=== PATIENT | male | born 1955 | race Caucasian/White ===

== ENCOUNTER 2019-02-24 23:08 | Emergency (ER) | payer SELFPAY ==
[~2019-02-24] VITALS: Ht 172.7 cm; Wt 70.3 kg
--- NOTE | 2019-02-24 23:21 | NUR ---
CATARINA FROM STREET. TO ER BED 11. INTOXICATED, ADMITS TO ALCOHOL USE . NO RESP DISTRESS. C/O BILAT LEG PAIN. PER PT, PAIN HAS BEEN GOING ON FOR AWHILE. PAIN IS 10/10 SPECIFICALLY WHEN MOVING. DENIES TRAUMA. ROM INTACT. AWAITING MD FOR EVAL
[2019-02-24] MEDS ORDERED: IBUPROFEN 600 MG TABLET PO ONE (23:30)
[2019-02-25] MEDS ORDERED: IBUPROFEN 600 MG TABLET PO ONE
--- NOTE | 2019-02-25 01:14 | NUR ---
Patient discharged to home in stable condition. Written and verbal after care instructions given. Patient verbalizes understanding of instruction.
[2019-02-25 01:15] VITALS: BP 94/140
== END 2019-02-25 01:18 | disposition home or self-care (01) ==
LOC: ER 23:12
DX: G89.29 Other chronic pain (principal); R56.9 Unspecified convulsions

== ENCOUNTER 2019-10-14 06:17 | Inpatient (IN) | payer MEDICAID ==
[2019-10-14] VITALS (7 sets, daily range): BP systolic 91–115; BP diastolic 50–64
[~2019-10-14] VITALS: Ht 172.7 cm; Wt 74.8 kg
--- NOTE | 2019-10-14 06:34 | NUR ---
PT AAOX4. BIBRA C/O "I AM BLEEDING FROM MY ASS" WHEN ASKED WHAT IS BOTHERING YOU. PT PALCED ON MONITOR AND PULSE OX. MD AT BEDSIDE FOR EVAL. NO ACUTE DISTRESS NOTED. IV INIAITED LAC 20G. WILL CONTINUE TO MONITOR.
[2019-10-14] MEDS ORDERED: METOCLOPRAMIDE HCL 10 MG/2 ML VIAL ONE (06:38)
[2019-10-14] MEDS ORDERED: PANTOPRAZOLE 40 MG VIAL ONE (06:38)
--- NOTE | 2019-10-14 06:59 | NUR ---
RECORD PRESS OPERATOR AT BEDSIDE FOR LAB
[2019-10-14] MEDS ORDERED: IV NS 0.9% 500 ML BAG IV ONE (07:00)
[2019-10-14] MEDS ORDERED: METOCLOPRAMIDE HCL 10 MG/2 ML VIAL IV ONE (07:00)
[2019-10-14] MEDS ORDERED: PANTOPRAZOLE 40 MG VIAL IV ONE (07:00)
--- NOTE | 2019-10-14 07:17 | NUR ---
RADIOLOGY AT BEDSIDE FOR EVAL.
[2019-10-14 07:24] LABS: BASOPHILS # (AUTO) 0.1 /CMM (0.0-0.2); BASOPHILS % (AUTO) 0.8 % (0.0-2.0); EOSINOPHILS % (AUTO) 1.5 % (0.0-6.0); LYMPHOCYTES # (AUTO) 0.8 /CMM (0.8-4.8); LYMPHOCYTES % (AUTO) 8.5 % (20.0-44.0); MEAN CORPUSCULAR HGB CONC 33 g/dl (31.0-36.0); MEAN CORPUSCULAR VOLUME 98 fL (80-96); MONOCYTES # (AUTO) 0.8 /CMM (0.1-1.30); MONOCYTES % (AUTO) 8.6 % (2.0-12.0); NEUTROPHILS # (AUTO) 7.5 /CMM (1.8-8.9); NEUTROPHILS % (AUTO) 80.6 % (43.0-81.0); PLATELET COUNT (AUTO) 67 /CMM (150-450); RED BLOOD CELL COUNT(AUTO) 2.09 MIL/uL (4.5-6.0); WHITE BLOOD COUNT (AUTO) 9.3 K/uL (4.3-11.0)
[2019-10-14 07:27] LABS: HEMATOCRIT 20 % (39-51); HEMOGLOBIN 6.7 g/dL (13.5-17.5)
[2019-10-14 07:28] LABS: CALCIUM, SERUM 8.4 mg/dL (8.5-10.1); CREATININE 1.2 mg/dL (0.6-1.3); POTASSIUM 4.6 mmol/L (3.5-5.1)
[2019-10-14 07:33] LABS: ALBUMIN 2.8 g/dL (3.4-5.0); BILIRUBIN,DIRECT 5.1 mg/dL (0.0-0.2)
[2019-10-14 07:38] LABS: BILIRUBIN,TOTAL 8.7 mg/dL (0.2-1.0)
[2019-10-14 08:09] LABS: BAND % (MANUAL) 4 % (0.0-5.0); EOSINOPHILS % (MANUAL) 2 % (0-4); LYMPHOCYTES % (MANUAL) 11 % (16-48); MONOCYTES % (MANUAL) 6 % (0-11.0); NEUTROPHILS % (MANUAL) 77 (42-76)
--- NOTE | 2019-10-14 09:00 | NUR ---
NURSING SUP GAVE 309-2.
--- NOTE | 2019-10-14 09:25 | NUR ---
report given to Brad ARCEO for angelica.
[2019-10-14] MEDS ORDERED: ZOLPIDEM TARTRATE 5 MG TABLET PO PRN (09:30)
[2019-10-14] MEDS: Thiamine 100 MG in IV D5W 50 ML IV SCH (09:30)
[2019-10-14] MEDS ORDERED: MAG HYDROX/AL HYDROX/SIMETH 30 ML UDC PO PRN (09:30)
[2019-10-14] MEDS ORDERED: ONDANSETRON HCL/PF 4 MG/2 ML VIAL IVP PRN (09:30)
[2019-10-14] MEDS ORDERED: Z GUARD REMEDY 2 OZ OINT TP PRN (09:30)
[2019-10-14] MEDS ORDERED: ACETAMINOPHEN 325 MG TABLET PO PRN (09:30)
[2019-10-14] MEDS ORDERED: MVI-12 10ML IV ONE (09:30)
--- NOTE | 2019-10-14 09:49 | NUR ---
wheeled patient via gurney accompanied by RN and emt in no distress. Da Mcclure at bedside to assume care.
--- NOTE | 2019-10-14 10:00 | NUR ---
RN ADMITTING NOTES ADMITTED A 64 YEARS OLD, MALE TO UNIT VIA GURNEY ACCOMPANIED BY E.R NURSE. A/O X4. ABLE TO MAKE NEEDS KNOWN. PATIENT ORIENTED TO ROOM, UNIT AND STAFF. ON ROOM AIR, BREATHING EVEN AND UNLABORED. REFUSED PHYSICAL ASSESSMENT AND PICTURES. PER PATIENT HE DOES NOT WANT TO BE BOTHER RIGHT NOW. LUNGS CLEAR ON AUSCULTATION. PATIENT IV ACCESS ON LAC #20, PATENT AND INTACT. IVF TO BE STARTED. SAFETY MEASURES INITIATED, BED PLACED IN LOWEST LOCKED POSITION WITH SIDE RAILS UP X2. CALL LIGHT WITHIN EASY REACH. WILL CONTINUE TO MONITOR.
--- NOTE | 2019-10-14 10:30 | NUR ---
RN NOTES MED NOT AVAILABLE YET, CALLED PHARMACY REGARDING FOLIC ACID AND THIAMINE, THEY SAID THEY WILL SEND IT UP WHEN READY. WILL F/U.
--- NOTE | 2019-10-14 10:45 | NUR ---
RN NOTES PATIENT REFUSED BLOOD DRAW FOR TYPE AND SCREENING, EXPLAINED THE RISKS AND BENEFITS FOR 3 X. PATIENT STILL REFUSED, WILL TRY TO CONVINCE AGAIN LATER. WILL CONTINUE TO MONITOR.
[2019-10-14] MEDS ORDERED: MVI ADULT 10ML VIAL = 1AMP 10 ML in IV NS 0.9% 1,000 ML IV PRN (11:00)
[2019-10-14] MEDS: IV NS 0.9% 1,000 ML IV SCH ×2 (11:00→19:30)
[2019-10-14] MEDS: Folic acid 1 MG in IV D5W 50 ML IV SCH (11:57)
--- NOTE | 2019-10-14 13:10 | NUR ---
RN NOTES STARTED BLOOD TRANSFUSION WITH V/S FOLLOWS: TEMP-98.2, PULSE- 90, RR- 20, BP- 115/51. WILL CONTINUE TO MONITOR.
--- NOTE | 2019-10-14 16:31 | NUR ---
RN NOTES S/P BLOOD TRANSFUSION, NO REACTIONS NOTED. WILL CONTINUE TO MONITOR.
[2019-10-14] MEDS: HYDROCODONE/APAP 5/325MG 1 EACH TABLET PO PRN (16:48)
--- NOTE | 2019-10-14 16:56 | NUR ---
RN NOTES PATIENT REFUSED BLOOD DRAW, REFUSED IV FLUIDS, REFUSED PLASMA. PATIENT IS NON-COMPLIANT. ONLY WANTS PAIN MEDICATION, PATIENT WANTS TO EAT BUT NPO, ADMITTED DUE TO GI BLEED. MADE AWARE, WILL CONTINUE TO MONITOR. Addendum: 10/14/19 at 1713 by MARIA EUGENIA HALL RN EXPLAINED THE RISKS AND BENEFITS 3 X BUT PATIENT STILL REFUSED. CHARGE NURSE MADE AWARE.
--- NOTE | 2019-10-14 17:49 | NUR ---
RN NOTES PATIENT REMOVED HIS TELE MONITOR, PULLED OUT HIS IV, STARTED SHOUTING AND BECOMES AGGRESIVE. CALLED SECURITY. REQUESTING TO BE TRANSFERRED TO ANOTHER HOSPITAL. CHARGE NURSE MADE AWARE.
--- NOTE | 2019-10-14 18:40 | NUR ---
RN NOTES PATIENT IN BED SITTING ON THE BED, ALERT AND ORIENTED X 3. NON-COMPLIANT, REFUSED ALL MEDICATIONS, MD AND CHARGE NURSE MADE AWARE. SAFETY MEASURES IN PLACE, WILL ENDORSE TO MOISTURE TESTER NURSE FOR WANDA.
--- NOTE | 2019-10-14 19:00 | NUR ---
RN OPENING NOTES Received patient awake on RA, no SOB/respiratory distress noted. No IV line access, patient pulled out his line during the AM shift. Patient is noted aggressive and with attempts to hit staff. S/P 1 unit PRBC. Patient refused to be on tele monitor. Patient wanted to be out of the hospital but no where to go to, patient is homeless. Refused all care. MD aware of the patient's status. Kept on bed, on fall and aspiration precautions. Will continue to monitor accordingly.
--- NOTE | 2019-10-14 19:46 | NUR ---
RN NOTES Patient summoned nurse to room. Patient is frustrated asking help from nurse to help him get out of the hospital. Explained to patient the hospital policy for AMA. Patient became more frustrated. Called security, explained the situation. Patient has no own wheelchair. Security will talk to patient.
--- NOTE | 2019-10-14 21:35 | NUR ---
RN NOTES Pt was able to convinced to stay in the hospital, snacks provided per patient demand. Kept on bed comfortable. Agreed to be check on vital signs, no unusualities at this time. Still refused to be on tele monitor and refused IV access. Per patient he is leaving tomorrow. Kept on bed comfortable. Noted asleep at this time. Will continue to monitor accordingly.
[2019-10-14 23:41] LABS: HEMOGLOBIN 6.2 g/dL (13.5-17.5)
--- NOTE | 2019-10-15 | NUR ---
RN NOTES Received call from [facility], critical lab result Hgb 6.2 and Hct 18. Notified information security architect JORDAN CASEY. Patient noted to refuse all care provided. Patient comfortably asleep at this time. Will continue to monitor accordingly.
--- NOTE | 2019-10-15 04:37 | NUR ---
RN NOTES Patient noted with large brown BM at this time. Urine noted tea colored. Reinforced to patient the importance of complying into therapeutic regimen ordered. Patient is angry of the regimen recommended.
[2019-10-15] MEDS: IV NS 0.9% 1,000 ML IV SCH (04:47)
--- NOTE | 2019-10-15 04:47 | NUR ---
RN NOTES OFFERED TO PATIENT THE IV ORDERED FOR HYDRATION. PATIENT INSISTED TO REFUSED DESPITE THE EDUCATION PROVIDED. PER PATIENT HE WILL LEAVE THE HOSPITAL TODAY. MD AWARE OF PATIENT'S BEHAVIOR.
[2019-10-15] MEDS: HYDROCODONE/APAP 5/325MG 1 EACH TABLET PO PRN (06:17)
--- NOTE | 2019-10-15 06:45 | NUR ---
RN CLOSING NOTES Patient asleep, easily awaken. On RA, no SOB/respiratory distress noted. All nursing needs attended. Patient refused AM labs. Kept on bed clean, dry and comfortable. On fall and aspiration precautions. No s/sx of bleeding noted at this time. Kept on bed clean, dry and comfortable. Call light within easy reach. Endorsed.
--- NOTE | 2019-10-15 07:15 | NUR ---
ms rn received pt, awake,alert,oriented x4,a very noncompliant person, verbally abusive,noted to have a left ac iv heplock at left arm, bleeding, will monitor patient.
[2019-10-15 08:00] VITALS: BP 94/54
--- NOTE | 2019-10-15 08:00 | NUR ---
ms rn patient is shouting verbally abusive refusing all care, want to leave.
[2019-10-15] MEDS ORDERED: OCTREOTIDE 50 MCG in IV NS 0.9% 50 ML IV ONE (09:30)
[2019-10-15] MEDS ORDERED: PANTOPRAZOLE 40 MG VIAL IV SCH (09:30)
[2019-10-15] MEDS: Folic acid 1 MG in IV D5W 50 ML IV SCH (09:30)
[2019-10-15] MEDS: Thiamine 100 MG in IV D5W 50 ML IV SCH (09:30)
[2019-10-15] MEDS ORDERED: OCTREOTIDE 500 MCG in IV NS 0.9% 99 ML IV PRN (09:30)
--- NOTE | 2019-10-15 10:00 | NUR ---
ms rn got a diet order from [facility], gave food to patient.
--- NOTE | 2019-10-15 11:36 | NUR ---
Social service consult requested by MD for homelessness. Per MD notes and chart review, pt is a 64 y/o male with PMH of chronic alcohol abuse, liver cirrhosis, and hepatitis C presents to the ED with c/o of bleeding from his rectum. Pt. states that this has happened to him before. ACCOUNTING CONSULTANT consulted with pt's MARIELOS Johns. Per RN Nat, pt is demanding, non-compliant and continuously keeps asking to leave the hospital. Per Nat, pt is non-ambulatory and wheelchair bound. ACCOUNTING CONSULTANT met with the pt bedside. Pt is alert and oriented x 3. ACCOUNTING CONSULTANT introduced self, explained the role of the SW and purpose of the visit. Pt yells when he speaks and keeps repeating himself stating he wants to leave the hospital and go to [facility]. Pt does not have a wheelchair with him. Pt has poor insight. Pt reports to be homeless for the past 11 years. Pt denies receiving any SSI or government assistance at this time. Pt declined all resources and began yelling, stating, " I want to leave now." ACCOUNTING CONSULTANT consulted with BENTLEY Church who is aware of pt wanting to leave [place]. Pt is non-compliant with all care at this time. BENTLEY Church informed ACCOUNTING CONSULTANT she will notify case checker Summer regarding pt wanting to leave and needing a wheelchair. Hat Blocking Machine Operator is available, as needed.
[2019-10-15] MEDS ORDERED: HALOPERIDOL LACTATE INJ 5 MG/ML VIAL IM ONE (14:00)
--- NOTE | 2019-10-15 15:08 | NUR ---
WARD AIDE was informed by BENTLEY Church, pt is adamant on wanting to leave AMA. WARD AIDE went to meet with the pt. Pt was on the lying on the floor in front of the elevator requesting to leave the hospital. Pt did not have a wheelchair. Security was near the pt. Pt was yelling and screaming at staff requesting to leave. Pt yelling he wants to go to his doctors at [facility]. WARD AIDE explained to the pt we are trying to get him some clothes, shoes and a wheelchair and redirected pt to get up from the floor. Pt was provided with clothing, shoes and a wheelchair. Pt appeared calm and was escorted by staff to the elevator. Pt left AMA declined to sign homeless waiver.
--- NOTE | 2019-10-15 15:10 | NUR ---
ms rn patient refused haldol ordered by danitza quesada, patient refused pictures and went ama.
== END 2019-10-15 14:00 | disposition left against medical advice (07) ==
LOC: ER 06:18 → TELE 09:03 → MED 10-15 12:09
PROVIDERS: ADMIT Family Medicine; ATTEND Nurse Practitioner Acute Care
PROC: 30233N1 Transfusion of Nonautologous Red Blood Cells into Peripheral Vein, Percutaneous Approach (ICD-10-PCS; principal; 2019-10-14)
DX: K76.6 Portal hypertension (principal); G93.41 Metabolic encephalopathy; K85.90 Acute pancreatitis without necrosis or infection, unspecified; D68.9 Coagulation defect, unspecified; E43 Unspecified severe protein-calorie malnutrition; K92.2 Gastrointestinal hemorrhage, unspecified; D69.59 Other secondary thrombocytopenia; K70.30 Alcoholic cirrhosis of liver without ascites; G40.909 Epilepsy, unspecified, not intractable, without status epilepticus; Z59.0 Homelessness; B19.20 Unspecified viral hepatitis C without hepatic coma; K31.89 Other diseases of stomach and duodenum; D62 Acute posthemorrhagic anemia; F17.210 Nicotine dependence, cigarettes, uncomplicated; I10 Essential (primary) hypertension; E87.2 Acidosis; E88.09 Other disorders of plasma-protein metabolism, not elsewhere classified; Z71.6 Tobacco abuse counseling; F10.239 Alcohol dependence with withdrawal, unspecified; Y90.9 Presence of alcohol in blood, level not specified; Z91.19 Patient's noncompliance with other medical treatment and regimen; E86.1 Hypovolemia; F19.10 Other psychoactive substance abuse, uncomplicated; K86.1 Other chronic pancreatitis; Z68.25 Body mass index [BMI] 25.0-25.9, adult
CPT/HCPCS: 36415; 71045-TC; 80048-TC; 80076-TC; 83690-TC; 84484-TC; 85025-TC; 85027-TC; 85730-TC; 86850-TC; 86921-TC; 87081-TC; A4216; C9113; G0378; J2354; J2765; J3411; J3490; J7030; J7040; J7050; J7060; P9016-BL

== ENCOUNTER 2019-10-26 21:20 | Emergency (ER) | payer MEDICAID ==
[~2019-10-26] VITALS: Ht 172.7 cm; Wt 79.4 kg
[2019-10-26] MEDS ORDERED: IOHEXOL 300 MG/ML IV ONE (21:37)
--- NOTE | 2019-10-26 21:40 | NUR ---
EMT AT BEDSIDE FOR EKG
--- NOTE | 2019-10-26 21:40 | NUR ---
PT AAOX4, BIBRA C/O ABD PAIN FOR "THE PAST COUPLE DAYS" PLACED IN BED 13 ON MONITOR AND PULSE OX. VSS, NO ACUTE DISTRESS NOTED. AWAITING MD FOR EVAL.
--- NOTE | 2019-10-26 21:46 | NUR ---
QC ANALYST AT BEDSIDE FOR LAB COLLECTION
[2019-10-26 22:02] LABS: BASOPHILS # (AUTO) 0.1 /CMM (0.0-0.2); BASOPHILS % (AUTO) 2.4 % (0.0-2.0); EOSINOPHILS % (AUTO) 4.2 % (0.0-6.0); HEMATOCRIT 26 % (39-51); HEMOGLOBIN 8.5 g/dL (13.5-17.5); LYMPHOCYTES # (AUTO) 0.6 /CMM (0.8-4.8); LYMPHOCYTES % (AUTO) 18.7 % (20.0-44.0); MEAN CORPUSCULAR HGB CONC 33 g/dl (31.0-36.0); MEAN CORPUSCULAR VOLUME 97 fL (80-96); MONOCYTES # (AUTO) 0.4 /CMM (0.1-1.30); MONOCYTES % (AUTO) 12.4 % (2.0-12.0); NEUTROPHILS # (AUTO) 1.9 /CMM (1.8-8.9); NEUTROPHILS % (AUTO) 62.3 % (43.0-81.0); PLATELET COUNT (AUTO) 63 /CMM (150-450); RED BLOOD CELL COUNT(AUTO) 2.68 MIL/uL (4.5-6.0); WHITE BLOOD COUNT (AUTO) 3.1 K/uL (4.3-11.0)
[2019-10-26] MEDS ORDERED: LIDOCAINE 2% JEL UROJET 10 ML MM ONE (22:03)
--- NOTE | 2019-10-26 22:10 | NUR ---
URINE COLLECTED AND SENT TO THE LAB.
[2019-10-26 22:12] LABS: SERUM AMMONIA 22 umol/L (11-32)
[2019-10-26 22:24] LABS: ALANINE AMINOTRANSFERASE 45 U/L (12-78); ALBUMIN 2.2 g/dL (3.4-5.0); ALKALINE PHOSPHATASE 160 U/L (46-116); ASPARTATE AMINOTRANSFERASE 79 U/L (15-37); BILIRUBIN,DIRECT 2.1 mg/dL (0.0-0.2); BILIRUBIN,TOTAL 2.9 mg/dL (0.2-1.0); CALCIUM, SERUM 7.7 mg/dL (8.5-10.1); CARBON DIOXIDE 27 mmol/L (21-32); CHLORIDE 106 mmol/L (98-107); CREATININE 0.9 mg/dL (0.6-1.3); GLUCOSE 109 mg/dL (74-106); LIPASE 300 U/L (73-393); POTASSIUM 4.2 mmol/L (3.5-5.1); SODIUM SERUM 139 mmol/L (136-145); TOTAL PROTEIN, SERUM 6.9 g/dL (6.4-8.2); UREA NITROGEN, BLOOD 13 mg/dL (7-18)
[2019-10-26 23:07] LABS: ALCOHOL, BLOOD < 3 mg/dL (0-0)
[2019-10-26 23:38] LABS: EOSINOPHILS % (MANUAL) 3 % (0-4); LYMPHOCYTES % (MANUAL) 20 % (16-48); MONOCYTES % (MANUAL) 7 % (0-11.0); NEUTROPHILS % (MANUAL) 70 (42-76)
--- NOTE | 2019-10-26 23:59 | NUR ---
Patient discharged to home in stable condition. Written and verbal after care instructions given. Patient verbalizes understanding of instruction and RX. Pt wheeled out. Homeless discharge signed.
--- NOTE | 2019-10-26 23:59 | NUR ---
IV removed. Catheter intact and site benign. Pressure and 4x4 applied to site. No bleeding noted.
[2019-10-27 00:01] VITALS: BP 138/76
[2019-10-27] MEDS ORDERED: AZIT250T13 PO (14:37)
== END 2019-10-27 00:01 | disposition home or self-care (01) ==
LOC: ER 21:36
DX: J18.9 Pneumonia, unspecified organism (principal); Z20.828 Contact with and (suspected) exposure to other viral communicable diseases; D61.818 Other pancytopenia; Z59.0 Homelessness; F17.200 Nicotine dependence, unspecified, uncomplicated; K74.60 Unspecified cirrhosis of liver; R10.9 Unspecified abdominal pain; K76.6 Portal hypertension; F10.10 Alcohol abuse, uncomplicated; Y90.0 Blood alcohol level of less than 20 mg/100 ml; R39.89 Other symptoms and signs involving the genitourinary system
CPT/HCPCS: 36415; 71045; 74177; 80048; 80076; 80305; 80307; 82140; 83690; 85025; 85730; 93005; 99285; Q9967; G0480; J3490

== ENCOUNTER 2019-10-27 13:23 | Emergency (ER) | payer MEDICAID ==
[~2019-10-27] VITALS: Ht 177.8 cm; Wt 68.0 kg
--- NOTE | 2019-10-27 13:30 | NUR ---
pt rec'd to er via ems #[id number] was here 10/26/19 for pain control . d/c'd back today . homeless wc hx liver cancer . monitors applied AWAITING EVALUATION BY ER PROVIDER.
--- NOTE | 2019-10-27 13:58 | NUR ---
[employer] AT BEDSIDE 9X6, NOTIFICATION DONE BY VANNESSA FOR POSSIBLE OD. -OFFICER TAB #[id number]. -OFFICER ALVAREZ #[id number].
[2019-10-27 14:23] LABS: BASOPHILS # (AUTO) 0.1 /CMM (0.0-0.2); BASOPHILS % (AUTO) 1.3 % (0.0-2.0); EOSINOPHILS % (AUTO) 3.6 % (0.0-6.0); HEMATOCRIT 28 % (39-51); HEMOGLOBIN 9.4 g/dL (13.5-17.5); LYMPHOCYTES # (AUTO) 0.6 /CMM (0.8-4.8); LYMPHOCYTES % (AUTO) 16.3 % (20.0-44.0); MEAN CORPUSCULAR HGB CONC 33 g/dl (31.0-36.0); MEAN CORPUSCULAR VOLUME 99 fL (80-96); MONOCYTES # (AUTO) 0.6 /CMM (0.1-1.30); NEUTROPHILS # (AUTO) 2.4 /CMM (1.8-8.9); NEUTROPHILS % (AUTO) 63.8 % (43.0-81.0); PLATELET COUNT (AUTO) 69 /CMM (150-450); RED BLOOD CELL COUNT(AUTO) 2.87 MIL/uL (4.5-6.0); WHITE BLOOD COUNT (AUTO) 3.8 K/uL (4.3-11.0)
[2019-10-27 14:24] LABS: ABG BASE EXCESS 1.2 mmol/L; ABG OXYGEN SATURATION 96.6 % (92.0-98.5); ABG PCO2 30.2 mmHg (35.0-45.0); ABG PH 7.514 (7.350-7.450); ABG PO2 95.4 mmHg (75.0-100.0); AaDO2 18.2 mmHg; COHb 0.8 % (0.5-1.5); MetHb 0.8 % (0.0-1.5); O2Hb 95.1 % (94.0-97.0); SITE, ABG Right Radial; VENT MODE, BG RA
--- NOTE | 2019-10-27 14:30 | NUR ---
INFLUENZA, RESPIRATORY PATHOGEN PROFILE AND COVID SWAB DONE. SENT TO LAB
--- NOTE | 2019-10-27 14:35 | NUR ---
CREDIT OPERATIONS SPECIALIST AT BEDSIDE
[2019-10-27] MEDS ORDERED: AZIT250T13 PO (14:37)
--- NOTE | 2019-10-27 14:39 | NUR ---
URINE SAMPLE COLLECTED AND SENT TO LAB
[2019-10-27 14:42] LABS: ALANINE AMINOTRANSFERASE 48 U/L (12-78); ALBUMIN 2.3 g/dL (3.4-5.0); ALKALINE PHOSPHATASE 156 U/L (46-116); ASPARTATE AMINOTRANSFERASE 78 U/L (15-37); BILIRUBIN,DIRECT 2.2 mg/dL (0.0-0.2); BILIRUBIN,TOTAL 3.1 mg/dL (0.2-1.0); CALCIUM, SERUM 8.2 mg/dL (8.5-10.1); CARBON DIOXIDE 28 mmol/L (21-32); CHLORIDE 108 mmol/L (98-107); CREATININE 0.9 mg/dL (0.6-1.3); GLUCOSE 122 mg/dL (74-106); POTASSIUM 4.2 mmol/L (3.5-5.1); SODIUM SERUM 141 mmol/L (136-145); UREA NITROGEN, BLOOD 15 mg/dL (7-18)
--- NOTE | 2019-10-27 14:42 | NUR ---
PATIENT WANTS TO GO OUT OF FACILITY TO SMOKE. DID NOT ALLOW PATIENT TO GO.
[2019-10-27 14:45] LABS: APPEARANCE,URINE Clear (CLEAR); BILIRUBIN,URINE MODERATE (NEGATIVE); BLOOD, URINE Trace-intact Ery/uL (NEGATIVE); COLOR,URINE Amber (YELLOW); KETONES,URINE Trace (NEGATIVE); LEUKOCYTE ESTERASE ,URINE Negative (NEGATIVE); NITRITE, URINE Negative (NEGATIVE); PH,URINE 5.5 (5.0-8.0); PROTEIN,URINE Negative (NEGATIVE); UGLUCOSE Negative (NEGATIVE); UROBILINOGEN,URINE 0.2 EU/dL (0.2)
--- NOTE | 2019-10-27 15:03 | NUR ---
GOT BED 102
--- NOTE | 2019-10-27 15:10 | NUR ---
CALLED IN FOR US GUIDED PARACENTESIS. MARIELOS KRISHNAMURTHY DOES NOT KNOW IF PATIENT IS ON BLOOD THINNERS. PATIENT HAS PENDING COVID TEST. SPOKE TO RADIOLOGIST DR. TAYLOR SHAHID AND HE SAID PROCEDURE TO BE DONE TOMORROW, 10/28/19.
--- NOTE | 2019-10-27 15:12 | NUR ---
INFORMED ER DR. LIANE PEREZ THAT US GUIDED PARACENTESIS WILL BE DONE TOMORROW PER ON-CALL RADIOLOGIST.
[2019-10-27] MEDS ORDERED: IBUPROFEN 600 MG TABLET PO PRN (15:30)
[2019-10-27] MEDS ORDERED: IBUPROFEN 600 MG TABLET PO ONE (15:31)
[2019-10-27 15:38] VITALS: BP 124/74
[2019-10-27 15:39] LABS: C-REACTIVE PROTEIN 2.6 mg/dL (0.0-0.9)
--- NOTE | 2019-10-27 15:45 | NUR ---
REPORT GIVEN TO YOLY RN OF TELE UNIT
[2019-10-27 15:51] LABS: EOSINOPHILS % (MANUAL) 3 % (0-4); LYMPHOCYTES % (MANUAL) 17 % (16-48); MONOCYTES % (MANUAL) 10 % (0-11.0); NEUTROPHILS % (MANUAL) 70 (42-76)
[2019-10-27 15:57] LABS: CALCIUM, SERUM 7.9 mg/dL (8.5-10.1); CREATININE 0.9 mg/dL (0.6-1.3); POTASSIUM 4.2 mmol/L (3.5-5.1)
[2019-10-27 16:09] LABS: ALBUMIN 2.3 g/dL (3.4-5.0); BILIRUBIN,TOTAL 3.2 mg/dL (0.2-1.0)
[2019-10-27 16:15] LABS: BACTERIA,URINE Few /HPF (None Seen); RBC,URINE 0-2 /HPF (0-2); SQUAMOUS EPITHELIAL CELL,UR Few /HPF (None Seen); WBC,URINE 0-2 /HPF (0-3)
--- NOTE | 2019-10-27 16:21 | NUR ---
PATIENT BECAME AGITATED AND AGGRESSIVE, AND STATES "I WANT TO SMOKE AND DRINK BOOZE". WHEELED OUT SELF OF THE EMERGENCY DEPARTMENT SCREAMING AND CURSING AND THREATENING THE MEDICAL STAFF.
--- NOTE | 2019-10-27 16:31 | NUR ---
IV removed. Catheter intact and site benign. Pressure and 4x4 applied to site. No bleeding noted. Patient eloped from facility. ER MD notified.
--- NOTE | 2019-10-28 05:08 | NUR ---
LAB CALLED, PATIENT NEGATIVE COVID
== END 2019-10-27 16:30 | disposition left against medical advice (07) ==
LOC: ER 13:28 → TELE-TD 15:14 → UNDOADMIN 15:14
DX: R18.8 Other ascites (principal); K92.2 Gastrointestinal hemorrhage, unspecified; R56.9 Unspecified convulsions; I10 Essential (primary) hypertension; Z59.0 Homelessness; Z79.899 Other long term (current) drug therapy; Z20.828 Contact with and (suspected) exposure to other viral communicable diseases
CPT/HCPCS: 0099U; 36415; 36600; 71045; 80048; 80053; 80076; 81001; 82550; 82728; 83605; 83615; 83880; 84145; 84484; 85025; 85378; 85730; 86140; 87040 ×2; 87086; 87635; 87804 ×2; 93005; 99285; J7030; 81000-TC

== ENCOUNTER → 2020-03-13 | Emergency (ER) | payer MEDICAID, OTHER ==
[~2020-03-13] VITALS: Ht 177.8 cm; Wt 68.0 kg
[~2020-03-13] MED LIST: AZIT250T13 PO
[2020-03-13 16:26] VITALS: BP 138/75
--- NOTE | 2020-03-13 17:27 | NUR ---
Patient eloped from facility. ER MD notified.
== END | disposition left against medical advice (07) ==
LOC: ER 17:18
DX: Z53.21 Procedure and treatment not carried out due to patient leaving prior to being seen by health care provider (principal); M25.562 Pain in left knee

== ENCOUNTER 2020-06-01 20:53 | Emergency (ER) | payer OTHER ==
[~2020-06-01] VITALS: Ht 172.7 cm; Wt 74.8 kg
[2020-06-01] MEDS ORDERED: HYDROCODONE/APAP 10/325MG TABLET ONE (22:58)
[2020-06-01] MEDS ORDERED: HYDROCODONE/APAP 10/325MG TABLET PO ONE (23:00)
--- NOTE | 2020-06-01 23:01 | NUR ---
PT PRESENTS TO ER C/O L LEG PAIN WHICH IS CHRONIC BUT WORSE S/P GLF. NO DEFORMITIES. USES CANE AND WALKER, BOTH OF WHICH HE HAS AT BEDSIDE. DISTAL CMS INTACT. RESP EVEN UNLABORED. IN ER BED 15.
--- NOTE | 2020-06-01 23:07 | NUR ---
REFUSES VS. STATES "CAN I GET A ROOM" DESPITE BEING IN ER BED 15. MEDICATED PER ORDER.
--- NOTE | 2020-06-02 00:05 | NUR ---
Patient discharged in stable condition. Written and verbal after care instructions given. Patient verbalizes understanding of instruction. PT ASSISTED TO WAITING ROOM. PT PROVIDED WITH SANDWICH AND DRINKS.
[2020-06-02 00:13] VITALS: BP 130/62
== END 2020-06-02 00:14 | disposition home or self-care (01) ==
LOC: ER 20:55
DX: S80.12XA Contusion of left lower leg, initial encounter (principal); I10 Essential (primary) hypertension; Z60.2 Problems related to living alone; Z79.899 Other long term (current) drug therapy; W01.0XXA Fall on same level from slipping, tripping and stumbling without subsequent striking against object, initial encounter; Y93.89 Activity, other specified; Y92.89 Other specified places as the place of occurrence of the external cause; Y99.8 Other external cause status
CPT/HCPCS: 73564-TC